=== PATIENT | male | born 1960 ===

== ENCOUNTER 2018-09-30 06:54 | Emergency (ER) | payer OTHER ==
[2018-09-30 06:55] VITALS: BMI 27.6
[2018-09-30] MEDS ORDERED: Sodium Chloride 0.9% 1,000 ML IV STA (07:13)
--- NOTE | 2018-09-30 07:18 | ED PDOC ---
HPI: Abdomen Time Seen by Provider: 09/30/18 07:04 Chief Complaint (Nursing): Abdominal Pain Chief Complaint (Provider): abdominal pain History Per: Patient History/Exam Limitations: no limitations Onset/Duration Of Symptoms: Days (x2) Current Symptoms Are (Timing): Still Present Location Of Pain/Discomfort: Epigastric Associated Symptoms: Nausea. denies: Fever, Chills, Diarrhea Additional Complaint(s): Shadi Christensen is a 58 year old male, with no significant past medical history, who presents to the emergency department complaining of epigastric pain associated with nausea onset for x2 days. Patient admits to alcohol ingestion. He denies any fever, bleeding or diarrhea. No further medical complaints. PMD: Jessenia Fernandez Past Medical History Reviewed: Historical Data, Nursing Documentation, Vital Signs Vital Signs: Last Vital Signs Temp 98.3 F 09/30/18 07:06 Pulse 83 09/30/18 07:06 Resp 21 09/30/18 07:06 BP 141/82 09/30/18 07:06 Pulse Ox 100 09/30/18 07:06 - Medical History PMH: No Chronic Diseases Denies: Chronic Kidney Disease - Surgical History Surgical History: No Surg Hx - Family History Family History: States: Unknown Family Hx - Home Medications Home Medications: Ambulatory Orders Medication Instructions Recorded Pantoprazole Sodium [Protonix] 40 mg PO DAILY #30 tablet. 09/30/18 - Allergies Allergies/Adverse Reactions: Allergies Allergy/AdvReac Type Severity Reaction Status Date / Time No Known Allergies Allergy Verified 09/30/18 07:08 Review of Systems ROS Statement: Except As Marked, All Systems Reviewed And Found Negative Constitutional: Negative for: Fever Gastrointestinal: Positive for: Nausea, Abdominal Pain (epigastric). Negative for: Diarrhea, Hematochezia Physical Exam - Reviewed Nursing Documentation Reviewed: Yes Vital Signs Reviewed: Yes - Physical Exam Appears: Positive for: No Acute Distress Head Exam: Positive for: ATRAUMATIC, NORMAL INSPECTION, NORMOCEPHALIC Skin: Positive for: Normal Color, Warm, Dry Eye Exam: Positive for: Normal appearance, EOMI, PERRL ENT: Positive for: Normal ENT Inspection Neck: Positive for: Normal, Painless ROM Cardiovascular/Chest: Positive for: Regular Rate, Rhythm. Negative for: Murmur Respiratory: Positive for: Normal Breath Sounds. Negative for: Respiratory Distress Gastrointestinal/Abdominal: Positive for: Tenderness (epigastric) Back: Positive for: Normal Inspection. Negative for: L CVA Tenderness, R CVA Tenderness, Vertebral Tenderness Extremity: Positive for: Normal ROM (upper and lower extremities). Negative for: Deformity, Swelling Neurologic/Psych: Positive for: Alert, Oriented - Laboratory Results Result Diagrams: 09/30/18 07:20 09/30/18 07:20 - ECG O2 Sat by Pulse Oximetry: 100 (RA) Pulse Ox Interpretation: Normal - Progress Re-evaluation Time: 10:45 Condition: Improved Medical Decision Making Medical Decision Making: Time: 07:04 Initial Plan: --CMP --Lipase --CBC w/ differential --Bentyl 10 mg PO --Sodium Chloride 1,000 ml IV 200 mls/hr --Pepcid 20 mg IVP --Zofran Inj 4 mg IVP --Reevaluation Scribe Attestation: Documented by Dhaval Garrido, acting as a scribe for Tucker Grover MD. Provider Scribe Attestation: All medical record entries made by the Scribe were at my direction and personally dictated by me. I have reviewed the chart and agree that the record accurately reflects my personal performance of the history, physical exam, medical decision making, and the department course for this patient. I have also personally directed, reviewed, and agree with the discharge instructions and disposition. Disposition - Clinical Impression Clinical Impression: Gastritis - Patient ED Disposition Is Patient to be Admitted: No - Disposition Referrals: Russell Moody MD [Staff Provider] - Disposition: Routine/Home Disposition Time: 10:46 Condition: FAIR Prescriptions: Pantoprazole Sodium [Protonix] 40 mg PO DAILY #30 tablet. Instructions: Gastritis Forms: [employer] ([place]) Print Language: IVORIAN
[2018-09-30 07:28] LABS: BASO % 0.2 % (0.0-2.0); EOS # 0.1 K/uL (0.0-0.7); EOS % 1.3 % (0.0-4.0); HEMOGLOBIN 14.5 g/dL (12.0-18.0); LYMPH # 4.6 K/uL (1.0-4.3); LYMPH % 43.6 % (20.0-40.0); MEAN CELL VOLUME 88.2 fl (80.0-94.0); MEAN PLATELET VOLUME 8.2 fl (7.2-11.7); MONO # 0.9 K/uL (0.0-0.8); MONO % 8.2 % (0.0-10.0); NEUT # 4.9 K/uL (1.8-7.0); NEUT % 46.7 % (50.0-75.0); NRBC % 0.1 % (0.0-0.0); RBC 4.83 Mil/uL (4.40-5.90); RED CELL DISTRIBUTION WIDTH 14.4 % (11.5-14.5); WHITE BLOOD COUNT 10.5 K/uL (4.8-10.8)
[2018-09-30 07:37] LABS: ALB/GLOB RATIO 1.4 (1.0-2.1); ALBUMIN 4.4 g/dL (3.5-5.0); ALT/SGPT 25 U/L (21-72); AST/SGOT 28 U/L (17-59); BLOOD UREA NITROGEN 17 mg/dl (9-20); CALCIUM 9.9 mg/dL (8.4-10.2); GFR NON-AFRICAN AMERICAN > 60; LIPASE 60 U/L (23-300)
[2018-09-30] MEDS ORDERED: Alum-Mag Hydrox-Simethicone Susp (30 mL) PO ONE (08:48)
[2018-09-30] MEDS ORDERED: Atrop/Hyos/Scop/PhenoB Elixir PO ONE (08:48)
[2018-09-30] MEDS ORDERED: Alum-Mag Hydrox-Simethicone Susp (30 mL) ONE (09:13)
[2018-09-30] MEDS ORDERED: Morphine 4 MG/ML VIAL ONE (09:15)
[2018-09-30 11:02] VITALS: BP 143/93; PULSE 71; RESP 16; TEMP 98.1; O2SAT 98
== END 2018-09-30 11:02 | disposition home or self-care (01) ==
LOC: H.ER 06:54
DX: K29.70 Gastritis, unspecified, without bleeding (principal)
CPT/HCPCS: 80053; 83690; 85025; 96374; 96375; 99283; J2270; J2405; J7030